=== PATIENT | male | born 1960 | race Caucasian/White ===

== ENCOUNTER 2018-08-16 16:06 | Outpatient (CLI) | payer BC ==
--- NOTE | 2018-08-16 16:27 | RAD ---
CHEST TWO VIEWS: 08/16/18 HISTORY: Cough. FINDINGS: No comparison. The cardiac silhouette and pulmonary vasculature are unremarkable. Mediastinum is midline. No conflue nt air space consolidation, pneumothorax or pleural fluid. IMPRESSION: No active cardiopulmonary abnormalities are demonstrated. POS: [facility]
== END 2018-08-16 16:07 | disposition home or self-care (01) ==
LOC: RAD-FRANK 16:06
PROVIDERS: ATTEND Nurse Practitioner Family
DX: J40 Bronchitis, not specified as acute or chronic (principal)
CPT/HCPCS: 71046